=== PATIENT | male | born 1945 | race African-American/Black ===

== ENCOUNTER 2022-04-13 18:37 | Inpatient (IN) | payer MEDICARE, OTHER ==
[~2022-04-13] VITALS: Ht 188 cm; Wt 157.5 kg
[2022-04-13] MEDS ORDERED: ACETAMINOPHEN 325 MG TAB PO ONE (19:00)
[2022-04-13 19:18] LABS: Basophils # (auto) 0.1 10 ^3/uL (0-0.2); Basophils % (auto) 0.7 % (0.0-2.0); Eosinophils # (auto) 0 10 ^3/uL (0-0.8); Eosinophils % (auto) 0.1 % (0.0-7.0); Hematocrit 40.4 % (41.0-53.0); Hemoglobin 14.1 g/dL (13.5-17.5); Lymphocytes # (auto) 1.6 10 ^3/uL (0.4-5.4); Lymphocytes % (auto) 18.8 % (10.0-50.0); Mean Corpuscular Hemoglobin 32.7 pg (28.0-32.0); Mean Corpuscular Volume 93.5 fL (80.0-100.0); Monocytes # (auto) 0.6 10 ^3/uL (0-1.3); Monocytes % (auto) 6.8 % (0.0-12.0); Neutrophils # (auto) 6.4 10 ^3/uL (1.6-8.6); Neutrophils % (auto) 73.6 % (37.0-80.0); Nucleated Red Blood Cells % 0.1 %; Red Blood Cells 4.32 10^6/uL (4.5-5.90); Red Cell Distribution Width 14.5 % (11.8-14.3); White Blood Cell 8.7 10^3/uL (4.4-10.8)
[2022-04-13 19:34] LABS: Albumin 3.3 g/dL (3.4-5.0); Potassium 3.4 mmol/L (3.5-5.1)
[2022-04-13 19:37] LABS: Bilirubin, Total 1.6 mg/dL (0.2-1.0); Total Protein 7.8 g/dL (6.4-8.2)
[2022-04-13] MEDS ORDERED: KETOROLAC TROMETH 60MG/2ML VIAL IM ONE (20:45)
[2022-04-13] MEDS ORDERED: PIPERACILLIN-TAZOB 3.375GM 100 ML IV ONE (22:15)
[2022-04-13] MEDS ORDERED: MORPHINE SULFATE INJ 2 MG/ml SYRG IV PRN ×2 (23:30)
[2022-04-13] MEDS ORDERED: NITROGLYCERIN 0.4 MG SL TAB SL PRN (23:30)
[2022-04-13] MEDS ORDERED: ACETAMINOPHEN 325 MG TAB PO PRN (23:30)
[2022-04-13] MEDS ORDERED: DOCUSATE SOD 100 MG CAP PO PRN (23:30)
[2022-04-13] MEDS ORDERED: ONDANSETRON HCL 4 MG/2 ML VIAL IV PRN (23:30)
[2022-04-13] MEDS ORDERED: SODIUM CHLORIDE 0.9% 1,000 ML IV SCH (23:30)
[2022-04-13] MEDS ORDERED: KETOROLAC TROMETH 30 MG/ML 1ML VIAL IV ONE (23:45)
[2022-04-13 23:47] LABS: Urine Bacteria NONE SEEN /hpf (None Seen); Urine Blood Negative /uL (Negative); Urine Hyaline Cast FEW /lpf (0 - 2); Urine Mucus FEW (None Seen); Urine Specific Gravity 1.018 (1.001-1.035); Urine WBC <1 /hpf (0 - 3)
[2022-04-14] MEDS: POTASSIUM CHL 20MEQ/100ML 100 ML IV SCH ×2 (00:55→03:07)
[2022-04-14] MEDS ORDERED: EZET10TA22 PO (01:13)
[2022-04-14] MEDS ORDERED: DORZ2SOL18 EACHEYE (01:13)
[2022-04-14] MEDS ORDERED: DRON400T PO (01:13)
[2022-04-14] MEDS ORDERED: POTA10TA51 PO (01:13)
[2022-04-14] MEDS ORDERED: CHOL20007 PO (01:13)
[2022-04-14] MEDS ORDERED: TAMS0.4C36 PO (01:13)
[2022-04-14] MEDS ORDERED: METO25TA93 PO (01:13)
[2022-04-14] MEDS ORDERED: PANT1INJ3 PO (01:13)
[2022-04-14] MEDS ORDERED: NAP500T PO (01:13)
[2022-04-14] MEDS ORDERED: SERT-375 PO (01:13)
[2022-04-14] MEDS ORDERED: APIX5TAB PO (01:13)
[2022-04-14] MEDS ORDERED: ASCO500T11 PO (01:19)
[2022-04-14] MEDS ORDERED: ATOR40TA52 PO (01:19)
[2022-04-14] MEDS ORDERED: FERR27TA2 PO (01:19)
[2022-04-14] MEDS ORDERED: HYDR12.56 PO (01:19)
[2022-04-14] MEDS ORDERED: TURM450C PO (01:19)
[2022-04-14] MEDS ORDERED: AML5T PO (01:19)
[2022-04-14] MEDS ORDERED: SODIUM CHLORIDE 0.9% 1,000 ML IV ONE (01:30)
[2022-04-14] MEDS ORDERED: METOPROLOL TARTRATE 1MG/1ML-5ML VIAL IV ONE (01:45)
[2022-04-14] MEDS: PIPERACILLIN-TAZOB 3.375GM 100 ML IV SCH ×3 (06:11→22:43)
[2022-04-14 07:22] LABS: Hematocrit 39.1 % (41.0-53.0); Hemoglobin 13.8 g/dL (13.5-17.5); Mean Corpuscular Hemoglobin 33.3 pg (28.0-32.0); Mean Corpuscular Hgb Conc. 35.4 g/dL (32.0-36.0); Mean Corpuscular Volume 94.1 fL (80.0-100.0); Red Blood Cells 4.15 10^6/uL (4.5-5.90); Red Cell Distribution Width 14.9 % (11.8-14.3); White Blood Cell 6.6 10^3/uL (4.4-10.8)
[2022-04-14 07:30] LABS: Basophils % (manual) 0 (0.0-2.0); Blast Cells 0; Eosinophils % (manual) 0 (0-7); Myelocytes % 0; Promyelocytes % 0; Reactive Lymphocytes 0
[2022-04-14 07:34] LABS: Albumin 2.9 g/dL (3.4-5.0); Calcium 8.7 mg/dL (8.5-10.1); Potassium 4.2 mmol/L (3.5-5.1)
[2022-04-14 07:38] LABS: BUN/Creatinine Ratio 11.5; Bilirubin, Total 1.8 mg/dL (0.2-1.0)
[2022-04-14 08:08] LABS: Band Neutrophils % (manual) 30; Lymphocytes % (manual) 30 (10.0-50.0); Metamyelocytes % 2; Monocytes % (manual) 8 (0-12)
[2022-04-14] MEDS ORDERED: ONDANSETRON HCL 4 MG/2 ML VIAL ONE (08:55)
[2022-04-14] MEDS ORDERED: MIDAZOLAM HCL 2MG/2ML 2ml VIAL (1mg/ml) ONE (08:55)
[2022-04-14] MEDS ORDERED: DexAMETHasone SOD PHOS 10MG/1ML VIAL INJ ONE (08:55)
[2022-04-14] MEDS ORDERED: ROCURONIUM 10MG/ML 10ML VIAL IV ONE (08:55)
[2022-04-14] MEDS ORDERED: SODIUM CHLORIDE LOCK 10 ML ONE (08:55)
[2022-04-14] MEDS ORDERED: fentaNYL CITRATE 100 MCG/2 ML VL ONE (08:55)
[2022-04-14] MEDS ORDERED: NEOSTIGMINE 1 MG/ML INJ (10mg/10ML VIAL) ONE (08:55)
[2022-04-14] MEDS ORDERED: GLYCOPYRROLATE 0.2 MG/ML 1ML VIAL ONE (08:55)
[2022-04-14 09:19] LABS: INR 1.25 (0.9-1.15)
[2022-04-14] MEDS ORDERED: HYDROmorphone HCL 2 MG/ML VL/or syr IV PRN (10:00)
[2022-04-14] MEDS ORDERED: MORPHINE SULFATE 4 MG/ML SYR/VIAL IV PRN (10:00)
[2022-04-14] MEDS ORDERED: METOCLOPRAMIDE HCL 5MG/ml INJ 2ml VIAL IV PRN (10:00)
[2022-04-14] MEDS ORDERED: ENOXAPARIN SOD 40 MG/0.4 ML SYRINGE SC SCH (10:00)
[2022-04-14] MEDS: BUPIVACAINE W/ EPINEPH 0.5% INJ 50ML MDV IJ ONE ×2 (11:08→11:35)
[2022-04-14] MEDS: DRONEDARONE HCL 400 MG TAB PO SCH ×2 (11:08→21:34)
[2022-04-14] MEDS: FAMOTIDINE (10MG/ML) 2ML VL IV SCH ×2 (11:08→21:34)
[2022-04-14] MEDS: METOPROLOL SUCCINATE XL 50 MG TAB PO SCH ×2 (11:09→21:34)
[2022-04-14] MEDS ORDERED: SUGAMMADEX 200mg/2ml Vial (100MG/ML) IV ONE (11:12)
[2022-04-14] MEDS ORDERED: POVIDONE IODINE 10 % TOPICAL OINT 30GM TOP ONE (11:19)
[2022-04-14] MEDS: D5W/SOD CHL 0.45%/KCL 20MEQ 1,000 ML IV SCH ×2 (13:40→14:00)
[2022-04-14] MEDS: metroNIDAZOLE 500MG/100ML 100 ML IV SCH ×2 (13:55→21:33)
[2022-04-14 14:08] VITALS: BP 106/51
[2022-04-14 17:00] VITALS: BP 119/52
[2022-04-14 22:00] VITALS: BP 116/56
[2022-04-15] MEDS: D5W/SOD CHL 0.45%/KCL 20MEQ 1,000 ML IV SCH ×2 (00:58→14:31)
[2022-04-15 02:07] VITALS: BP 116/56
[2022-04-15 05:00] VITALS: BP 139/58
[2022-04-15] MEDS: metroNIDAZOLE 500MG/100ML 100 ML IV SCH ×3 (05:05→21:12)
[2022-04-15] MEDS: PIPERACILLIN-TAZOB 3.375GM 100 ML IV SCH ×3 (06:12→22:07)
[2022-04-15 09:00] VITALS: BP 110/31
[2022-04-15] MEDS: METOPROLOL SUCCINATE XL 50 MG TAB PO SCH ×2 (10:36→21:13)
[2022-04-15] MEDS: FAMOTIDINE (10MG/ML) 2ML VL IV SCH ×2 (10:36→21:11)
[2022-04-15] MEDS: DRONEDARONE HCL 400 MG TAB PO SCH ×2 (10:36→21:12)
[2022-04-15 13:00] VITALS: BP 134/59
[2022-04-15] MEDS: HYDROcodone-ACET 5/325MG TAB PO PRN (15:59)
[2022-04-15 17:00] VITALS: BP 100/56
[2022-04-15 21:30] VITALS: BP 146/90
[2022-04-15] MEDS ORDERED: dilTIAZem 25 MG/5 ML VIAL IV ONE (23:15)
[2022-04-16] MEDS: D5W/SOD CHL 0.45%/KCL 20MEQ 1,000 ML IV SCH ×3 (01:16→15:45)
[2022-04-16] MEDS: metroNIDAZOLE 500MG/100ML 100 ML IV SCH ×3 (04:56→20:58)
[2022-04-16 05:00] VITALS: BP 139/64
[2022-04-16] MEDS: PIPERACILLIN-TAZOB 3.375GM 100 ML IV SCH ×3 (06:03→22:21)
[2022-04-16] MEDS: FAMOTIDINE (10MG/ML) 2ML VL IV SCH ×2 (09:09→20:57)
[2022-04-16] MEDS: ENOXAPARIN SOD 40 MG/0.4 ML SYRINGE SC SCH ×2 (09:10→20:58)
[2022-04-16 09:38] LABS: Alanine Aminotransferase 48 U/L (16-61); Albumin 2.4 g/dL (3.4-5.0); Anion Gap 8 (5-15); Aspartate Aminotransferase 44 U/L (15-37); BUN/Creatinine Ratio 14.3; Blood Urea Nitrogen 14 mg/dL (7-18); Calcium 8.9 mg/dL (8.5-10.1); Carbon Dioxide 24 mmol/L (21-32); Chloride 109 mmol/L (98-107); GFR African American 96 mL/min; GFR Non-African American 79 mL/min; Glucose 146 mg/dL (74-106); Potassium 4.1 mmol/L (3.5-5.1); Sodium 141 mmol/L (136-145)
[2022-04-16 09:41] LABS: Alkaline Phosphatase 52 U/L (45-117); Bilirubin, Total 0.8 mg/dL (0.2-1.0); Total Protein 7.4 g/dL (6.4-8.2)
[2022-04-16] MEDS: DRONEDARONE HCL 400 MG TAB PO SCH ×2 (10:48→20:57)
[2022-04-16] MEDS: METOPROLOL SUCCINATE XL 50 MG TAB PO SCH ×2 (10:49→20:58)
[2022-04-16 13:00] VITALS: BP 126/70
[2022-04-16] MEDS: METOPROLOL TARTRATE 1MG/1ML-5ML VIAL IV PRN (19:38)
[2022-04-16 22:00] VITALS: BP 159/72
[2022-04-17] MEDS: D5W/SOD CHL 0.45%/KCL 20MEQ 1,000 ML IV SCH ×3 (01:28→10:37)
[2022-04-17 05:00] VITALS: BP 144/62
[2022-04-17] MEDS: metroNIDAZOLE 500MG/100ML 100 ML IV SCH ×3 (05:15→21:50)
[2022-04-17] MEDS: METOPROLOL TARTRATE 1MG/1ML-5ML VIAL IV PRN (05:45)
[2022-04-17 05:53] LABS: Albumin 2.3 g/dL (3.4-5.0); Calcium 8.7 mg/dL (8.5-10.1); Potassium 4.2 mmol/L (3.5-5.1)
[2022-04-17 05:58] LABS: BUN/Creatinine Ratio 18.8; Bilirubin, Total 0.6 mg/dL (0.2-1.0)
[2022-04-17] MEDS: PIPERACILLIN-TAZOB 3.375GM 100 ML IV SCH (06:16)
[2022-04-17 08:00] VITALS: BP 142/74
[2022-04-17] MEDS: DRONEDARONE HCL 400 MG TAB PO SCH ×2 (09:11→21:49)
[2022-04-17] MEDS: FAMOTIDINE (10MG/ML) 2ML VL IV SCH ×2 (09:11→21:50)
[2022-04-17] MEDS: ENOXAPARIN SOD 40 MG/0.4 ML SYRINGE SC SCH ×2 (09:11→21:49)
[2022-04-17] MEDS: METOPROLOL SUCCINATE XL 50 MG TAB PO SCH ×2 (09:12→21:50)
[2022-04-17] MEDS: cefTRIAXone 1GM/50ML D5W 50 ML IV SCH (09:14)
[2022-04-17] MEDS ORDERED: PPN PER PHARMACY 0 ML IV SCH (09:15)
[2022-04-17 09:23] VITALS: BP 142/74
[2022-04-17 09:29] LABS: Magnesium 2.1 mg/dL (1.6-2.6)
[2022-04-17] MEDS ORDERED: DEXTROSE (50%) 50ML SYRG IV SCH (09:45)
[2022-04-17] MEDS: InsuLIN REG 1unit/0.01ml Soln (100units/ml) SC SCH ×2 (12:00→17:46)
[2022-04-17] MEDS: ACCU-CHEK COMFORT CURVE STRIP VI SCH ×2 (12:15→17:47)
[2022-04-17 13:00] VITALS: BP 131/78
[2022-04-17 17:25] VITALS: BP 142/58
[2022-04-17] MEDS ORDERED: PPN PER PHARMACY IV NR ×7 (20:00)
[2022-04-17 21:32] VITALS: BP 136/53
[2022-04-18] VITALS (8 sets, daily range): BP systolic 133–177; BP diastolic 50–90
[2022-04-18] MEDS: InsuLIN REG 1unit/0.01ml Soln (100units/ml) SC SCH ×4 (00:15→18:00)
[2022-04-18] MEDS: ACCU-CHEK COMFORT CURVE STRIP VI SCH ×4 (00:19→18:23)
[2022-04-18] MEDS: D5W/SOD CHL 0.45%/KCL 20MEQ 1,000 ML IV SCH (02:05)
[2022-04-18 06:21] LABS: Albumin 2.2 g/dL (3.4-5.0); Calcium 8.6 mg/dL (8.5-10.1); Magnesium 2.2 mg/dL (1.6-2.6); Potassium 4.2 mmol/L (3.5-5.1)
[2022-04-18] MEDS: metroNIDAZOLE 500MG/100ML 100 ML IV SCH ×3 (06:21→20:58)
[2022-04-18 06:27] LABS: Bilirubin, Total 0.5 mg/dL (0.2-1.0); Phosphorus 2.9 mg/dL (2.5-4.90); Total Protein 6.5 g/dL (6.4-8.2)
[2022-04-18] MEDS: HYDROcodone-ACET 5/325MG TAB PO PRN (08:23)
[2022-04-18] MEDS: cefTRIAXone 1GM/50ML D5W 50 ML IV SCH (09:08)
[2022-04-18] MEDS: ENOXAPARIN SOD 40 MG/0.4 ML SYRINGE SC SCH ×2 (10:12→20:59)
[2022-04-18] MEDS: METOPROLOL SUCCINATE XL 50 MG TAB PO SCH ×2 (10:12→21:10)
[2022-04-18] MEDS: FAMOTIDINE (10MG/ML) 2ML VL IV SCH ×2 (10:12→20:58)
[2022-04-18] MEDS: DRONEDARONE HCL 400 MG TAB PO SCH ×2 (10:13→20:58)
[2022-04-18] MEDS ORDERED: hydrALAZINE HCL 20 MG/ML VL IV PRN (12:30)
[2022-04-18] MEDS ORDERED: PPN PER PHARMACY IV NR ×9 (20:00)
[2022-04-19 05:00] VITALS: BP 154/70
[2022-04-19 05:19] LABS: Basophils # (auto) 0.1 10 ^3/uL (0-0.2); Basophils % (auto) 0.8 % (0.0-2.0); Eosinophils # (auto) 0.1 10 ^3/uL (0-0.8); Eosinophils % (auto) 1.5 % (0.0-7.0); Hematocrit 39.7 % (41.0-53.0); Hemoglobin 13.4 g/dL (13.5-17.5); Lymphocytes # (auto) 1.5 10 ^3/uL (0.4-5.4); Lymphocytes % (auto) 19.7 % (10.0-50.0); Mean Corpuscular Hemoglobin 31.4 pg (28.0-32.0); Mean Corpuscular Hgb Conc. 33.9 g/dL (32.0-36.0); Mean Corpuscular Volume 92.7 fL (80.0-100.0); Monocytes # (auto) 0.9 10 ^3/uL (0-1.3); Monocytes % (auto) 12.3 % (0.0-12.0); Neutrophils % (auto) 65.7 % (37.0-80.0); Nucleated Red Blood Cells % 0.1 %; Red Blood Cells 4.28 10^6/uL (4.5-5.90); Red Cell Distribution Width 15.3 % (11.8-14.3); White Blood Cell 7.7 10^3/uL (4.4-10.8)
[2022-04-19 05:35] LABS: Potassium 3.8 mmol/L (3.5-5.1)
[2022-04-19] MEDS: metroNIDAZOLE 500MG/100ML 100 ML IV SCH ×2 (05:38→14:00)
[2022-04-19] MEDS: InsuLIN REG 1unit/0.01ml Soln (100units/ml) SC SCH ×3 (05:39→11:54)
[2022-04-19] MEDS: ACCU-CHEK COMFORT CURVE STRIP VI SCH ×3 (05:40→11:54)
[2022-04-19 05:41] LABS: Albumin 2.4 g/dL (3.4-5.0); BUN/Creatinine Ratio 21.7; Bilirubin, Total 0.6 mg/dL (0.2-1.0); Calcium 8.5 mg/dL (8.5-10.1); Magnesium 2.1 mg/dL (1.6-2.6); Phosphorus 3.4 mg/dL (2.5-4.90); Total Protein 6.7 g/dL (6.4-8.2)
[2022-04-19 09:00] VITALS: BP 146/65
[2022-04-19] MEDS ORDERED: LEVO500T31 PO (09:11)
[2022-04-19] MEDS ORDERED: METR500T PO (09:11)
[2022-04-19] MEDS ORDERED: PANT40T PO (09:11)
[2022-04-19] MEDS ORDERED: HYDR-4902 PO (09:11)
[2022-04-19] MEDS: cefTRIAXone 1GM/50ML D5W 50 ML IV SCH (09:35)
[2022-04-19] MEDS: ENOXAPARIN SOD 40 MG/0.4 ML SYRINGE SC SCH (11:13)
[2022-04-19] MEDS: FAMOTIDINE (10MG/ML) 2ML VL IV SCH (11:13)
[2022-04-19] MEDS: METOPROLOL SUCCINATE XL 50 MG TAB PO SCH (11:13)
[2022-04-19] MEDS: DRONEDARONE HCL 400 MG TAB PO SCH (11:13)
[2022-04-19 13:24] VITALS: BP 151/43
== END 2022-04-19 14:46 | disposition home or self-care (01) | DRG 339 ==
LOC: ER 18:37 → OVERFLOW 23:16 → TELE-CENTR 04-14 14:02
PROVIDERS: ADMIT Nurse Practitioner Family; ATTEND Family Medicine
PROC: 0WJG4ZZ Inspection of Peritoneal Cavity, Percutaneous Endoscopic Approach (ICD-10-PCS; 2022-04-14)
PROC: 0DTJ0ZZ Resection of Appendix, Open Approach (ICD-10-PCS; principal; 2022-04-14 10:06)
DX: K35.32 Acute appendicitis with perforation, localized peritonitis, and gangrene, without abscess (principal); K56.7 Ileus, unspecified; R18.8 Other ascites; Z68.42 Body mass index [BMI] 45.0-49.9, adult; E11.65 Type 2 diabetes mellitus with hyperglycemia; E66.01 Morbid (severe) obesity due to excess calories; E78.5 Hyperlipidemia, unspecified; E87.6 Hypokalemia; E78.00 Pure hypercholesterolemia, unspecified; F17.200 Nicotine dependence, unspecified, uncomplicated; I10 Essential (primary) hypertension; I48.0 Paroxysmal atrial fibrillation; K66.0 Peritoneal adhesions (postprocedural) (postinfection); Z53.31 Laparoscopic surgical procedure converted to open procedure; Z79.01 Long term (current) use of anticoagulants; Z85.46 Personal history of malignant neoplasm of prostate; Z71.6 Tobacco abuse counseling; Z20.822 Contact with and (suspected) exposure to COVID-19; Z79.84 Long term (current) use of oral hypoglycemic drugs
CPT/HCPCS: 36415; 71045; 74176; 80053; 81001; 82962; 83036; 83735; 84100; 84478; 85007; 85025; 85027; 85610; 86850; 86900; 86901; 87070; 87075; 87076; 87077; 87186; 93005; 94660; 96365; 96375; 97110; 97116; 97530; G0378; J0696; J1100; J1815; J1885; J2250; J2405; J2543; J3480; J3490